=== PATIENT | male | born 1950 | race Hispanic/Latino ===

== ENCOUNTER 2023-01-02 08:55 | Emergency (ER) | payer OTHER ==
[~2023-01-02] VITALS: Ht 160 cm; Wt 56.7 kg
[2023-01-02] MEDS ORDERED: ONDANSETRON 4MG INJ ONE (09:12)
[2023-01-02] MEDS ORDERED: MORPHINE 4 MG SYG ONE (09:12)
[2023-01-02 09:29] LABS: HEMATOCRIT 38.5 % (42-54); MEAN CORPUSCULAR HEMOGLOBIN 28.6 pg (27.0-33.0); MEAN CORPUSCULAR HGB CONC 33.2 g/dL (32.0-36.0); MEAN CORPUSCULAR VOLUME 85.9 fL (79-99); RED BLOOD CELL COUNT(AUTO) 4.48 MIL/uL (4.50-6.20); RED CELL DISTRIBUTION WIDTH 13.8 % (11.0-15.5); WHITE BLOOD COUNT (AUTO) 5.1 K/uL (4.8-10.8)
[2023-01-02] MEDS ORDERED: CEFAZOLIN SODIUM 2 GM VIAL IVPB PRN (09:30)
[2023-01-02] MEDS ORDERED: MORPHINE 4 MG SYG IVP ONE (09:30)
[2023-01-02] MEDS ORDERED: MORPHINE 2 MG SYG IVP ONE (09:30)
[2023-01-02] MEDS ORDERED: LACTATED RINGERS 1000ML 1,000 ML IV ONE (09:30)
[2023-01-02] MEDS ORDERED: ONDANSETRON 4MG INJ IVP ONE (09:30)
[2023-01-02] MEDS ORDERED: TETANUS/DIPHTHERIA TOXOID [ADULT] 0.5 ML VIAL IM ONE (09:30)
[2023-01-02 09:44] LABS: CREATININE 1.2 mg/dL (0.5-1.5); POTASSIUM 4.2 mmol/L (3.5-5.1)
[2023-01-02] MEDS ORDERED: LIDOCAINE 1%-EPI 1:100,000 20 ML VIAL IJ ONE ×2 (09:50→10:05)
[2023-01-02] MEDS ORDERED: CEPH500B PO (10:32)
[2023-01-02] MEDS ORDERED: BACITRACIN 1 EACH PACKET TP ONE (10:54)
[2023-01-02 11:34] VITALS: BP 133/78; PULSE 78; RESP 18; O2SAT 98
== END 2023-01-02 11:34 | disposition home or self-care (01) ==
LOC: EDH 08:55
DX: S81.011A Laceration without foreign body, right knee, initial encounter (principal); X58.XXXA Exposure to other specified factors, initial encounter; Y93.89 Activity, other specified; Y92.89 Other specified places as the place of occurrence of the external cause; Y99.8 Other external cause status
CPT/HCPCS: 99284; 96374; 96375; 80048; 85027; 36415; 90714; 73562; 90471; 12002; J7120; J3490 ×2; J2405; J2270; J0690; 96376

== ENCOUNTER → 2024-05-14 | Outpatient (CLI) | payer OTHER ==
[~2024-05-14] MED LIST: CEPH500B PO
--- NOTE | 2024-05-14 16:46 | HMCSR ---
APPROVED REPORT EXAM: Two-dimensional and M-mode echocardiogram with Doppler and color Doppler. INDICATION ICD: Murmur 2D Dimensions RVDd3.5 cmLVEF(%)33.8 (>50%)LVED Vol(simp.)120.0 mL IVSd1.2 (0.7-1.1cm)FS(%)16 %LVES Vol(simp.)53.5 mL LVDd4.4 (3.8-5.6cm)LA (2D)4.4 (1.6-4.0cm)LVEF(%, simp.)55 % PWd1.3 (0.7-1.1cm)Ao Root(2D)2.9 (2.0-3.7cm)LA ESV INDEX (4CH)50.00 mL/m2 IVSs1.4 cmLVOT diam2.3 (1.8-2.4cm)LA ESV INDEX (2CH)39.20 mL/m2 LVDs3.7 (2.5-4.0cm)LA ESV INDEX (BP)43.20 mL/m2 PWs1.0 cm M-Mode Dimensions EPSS0.8 cm LA (MM)5.2 (1.6-4.0cm) Ao Root(MM)3.2 (2.0-3.7cm) Aortic Valve AoV VTI0.7 mAo Mean GR25.0 mmHgLVOT VTI0.16 m JAMI (VMAX)1.0 cm2Al P1/2T555 msAVA (VTI) 1.0 cm2 Mitral Valve MV E Vmax65.0 cm/sDECEL Pmoy161 ms MV A Pqiy121.0 cm/sP 1/2 T46 ms E/A ratio0.6MVA (PHT)4.8 cm2 MR Max PG59 mmHg TDI E/E' Niqedh74.1E/E' Lateral7.7 Medial E' Peak V4.60 cm/sLateral E' Peak V8.40 cm/s Pulmonary Valve PV VTI0.27 mPV Mean GR5 mmHg Left Ventricle The left ventricle is normal size. There is normal LV segmental wall motion. Mild concentric left john tricular hypertrophy. LVEF is 55-60%. The left ventricular diastolic function is normal. Right Ventricle The right ventricle is normal size. The right ventricular systolic function is normal. Atria The left atrium is mildly dilated. The right atrium size is normal. Aortic Valve The aortic valve is normal in structure. Aortic valve is mildly calcified. Mild aortic regurgitation is present. There is moderate aortic valvular stenosis. Highest mean aortic valve gradient is 25mmHg. Mitral Valve The mitral valve is mildly thickened but opens well. Mitral regurgitation is trace. There is no trini l valve stenosis. Tricuspid Valve The tricuspid valve is normal in structure. There is no tricuspid valve regurgitation noted. Pulmonic Valve The pulmonary valve is normal in structure. There is no pulmonic valvular regurgitation. Great Vessels The aortic root is normal in size. The IVC is normal in size and collapses >50% with inspiration. Pericardium There is no pericardial effusion. Conclusion LVEF is 55-60%. There is normal LV segmental wall motion. Mild concentric left ventricular hypertrophy. The left atrium is mildly dilated. There is moderate aortic valvular stenosis. Highest mean aortic valve gradient is 25mmHg. Mild aortic regurgitation is present. The aortic valve is normal in structure. Aortic valve is mildly calcified. There is no pericardial effusion.
== END | disposition home or self-care (01) ==
LOC: RAH 13:41
PROVIDERS: ATTEND Internal Medicine
DX: I08.0 Rheumatic disorders of both mitral and aortic valves (principal); R01.1 Cardiac murmur, unspecified; R06.09 Other forms of dyspnea
CPT/HCPCS: 93306